=== PATIENT | female | born 1985 | race Caucasian/White ===

== ENCOUNTER 2017-09-28 07:39 | Emergency (ER) | payer BC ==
[~2017-09-28] VITALS: Ht 160 cm; Wt 63.5 kg
[2017-09-28] MEDS ORDERED: HYDROCODON-ACE1 EAC7 PO (07:57)
[2017-09-28 08:22] LABS: NUCLEATED RBCS 0 /100WBC; RDW-CV 12.1 % (10.5-14.5)
[2017-09-28 08:22] LABS: URINE BLOOD 3+ (Negative); URINE CLARITY CLEAR; URINE COLOR YELLOW; URINE GLUCOSE-RANDOM NEGATIVE (Negative); URINE LEUKOCYTES-REFLEX TRACE (Negative); URINE NITRITE-REFLEX NEGATIVE (Negative); URINE PROTEIN TRACE (Negative); URINE SPECIFIC GRAVITY 1.025 (1.005-1.030)
[2017-09-28 08:24] LABS: URINE KETONES 3+ (Negative)
[2017-09-28 08:24] LABS: HEMOGLOBIN 13.9 gm/dL (12.0-15.0); MCH 32.6 pg (26.0-34.0); MCV 95.9 fL (80.0-100.0); PLATELET COUNT* 213 thou/uL (150-400); POTASSIUM 3.7 mmol/L (3.5-5.1); RBC 4.27 mil/uL (4.20-5.00); WBC 8.8 thou/uL (4.0-11.0)
[2017-09-28 08:25] LABS: ICTOTEST (BILI CONFIRMATORY) Negative (Negative); URINE BILIRUBIN 1+ (Negative); URINE REDUCING SUBSTANCE NEGATIVE (Negative)
[2017-09-28 08:27] LABS: CASTS None Seen /LPF (None Seen); CRYSTALS None Seen /LPF (None Seen); MUCUS 0-3 Light strn/LPF (None Seen); SQUAMOUS >10 Many /LPF (0-3); URINE RBC 3-10 Few /HPF (0-2); URINE WBC-REFLEX 0-5 Rare /HPF (0-5)
[2017-09-28 08:28] LABS: ALBUMIN 4.2 g/dL (3.4-5.0); TOTAL BILIRUBIN 0.5 mg/dL (<0.1-1.0)
[2017-09-28 09:05] LABS: ABSOLUTE LYMPHOCYTES 0.7 thou/uL (0.8-5.3); ABSOLUTE MONOCYTES 0.2 thou/uL (0.0-1.2); ABSOLUTE NEUTROPHILS 7.9 thou/uL (1.6-8.1); ANISOCYTOSIS 1+; OVALOCYTES Occasional; PLATELET ESTIMATE ADEQUATE; POIKILOCYTOSIS 1+
[2017-09-28] MEDS ORDERED: ZOFRAN ODT4 MG PO (09:19)
[2017-09-28] MEDS ORDERED: NORCO 5-325 TA1 EACH PO (09:19)
[2017-09-28] MEDS ORDERED: FLOMAX0.4 MG PO (09:19)
[2017-09-28] MEDS ORDERED: BACTRIM DS TAB1 EACH PO (09:19)
[2017-09-28] MEDS ORDERED: IBUPROFEN 800800 M1 PO (09:19)
[2017-09-28 09:26] VITALS: BP 106/66
== END 2017-09-28 09:29 | disposition home or self-care (01) ==
LOC: M.ERS 07:39
PROVIDERS: Emergency Medicine Emergency Medical Services
DX: N20.0 Calculus of kidney (principal); Z87.442 Personal history of urinary calculi